=== PATIENT | male | born 1965 | race Caucasian/White ===

== ENCOUNTER → 2016-12-19 | Outpatient (CLI) | payer BC ==
[~2016-12-19] MED LIST: ASPI81TA28 PO; ATEN-173 PO; GLIP5TAB11 PO; HYZ/10015 PO; LEVO150T9 PO; METF-384 PO; MULT-221 PO; SIMV40TA4 PO
[2016-12-19 17:48] LABS: ALB/GLOB RATIO 1.2 (0.9-2); ALT/SGPT 39 U/L (12-78); AST/SGOT 19 U/L (15-37); BLOOD UREA NITROGEN 19 mg/dl (7-18); BUN/CREATININE RATIO 21.1 (10-20); CALCIUM 9.5 mg/dl (8.5-10.1); CARBON DIOXIDE 25 mmol/L (21-32); CHLORIDE 104 mmol/L (98-107); CHOLESTEROL 188 mg/dl (0-200); CHOLESTEROL/HDL RATIO 2.8; CREATININE 0.89 mg/dl (0.60-1.40); GLUCOSE 114 mg/dl (70-99); HDL CHOLESTEROL 67 mg/dl; LDL CHOLESTEROL CALCULATED 99 mg/dl; POTASSIUM 3.7 mmol/L (3.5-5.1); SODIUM 140 mmol/L (136-145); TRIGLYCERIDES 108 mg/dl (0-150); VERY LOW DENSITY LIPOPROT CALC 22 mg/dl
[2016-12-19 17:59] LABS: ALKALINE PHOSPHATASE 92 U/L (45-117)
[2016-12-19 19:57] LABS: RATIO 459.4 mcg/mg (0-30.0)
[2016-12-20 06:18] LABS: ESTIMATED AVERAGE GLUCOSE 166 mg/dl; HA1C FLAG Normal (Normal)
== END | disposition home or self-care (01) ==
LOC: C.LAB1850 16:02
PROVIDERS: ATTEND Nurse Practitioner Family
DX: E11.29 Type 2 diabetes mellitus with other diabetic kidney complication (principal); E78.5 Hyperlipidemia, unspecified

== ENCOUNTER → 2017-04-18 | Outpatient (CLI) | payer BC ==
[2017-04-19 06:56] LABS: ESTIMATED AVERAGE GLUCOSE 166 mg/dl; HA1C FLAG Normal (Normal)
== END | disposition home or self-care (01) ==
LOC: C.LAB1850 16:23
PROVIDERS: ATTEND Nurse Practitioner Family
DX: E11.29 Type 2 diabetes mellitus with other diabetic kidney complication (principal)

== ENCOUNTER → 2017-07-24 | Outpatient (CLI) | payer BC ==
[2017-07-24 17:18] LABS: PROSTATE SPECIFIC ANTIGEN 2.24 ng/ml (0.000-4.000); THYROID STIMULATING HORMONE 0.126 uIu/ml (0.300-4.500)
[2017-07-25 06:46] LABS: ESTIMATED AVERAGE GLUCOSE 128 mg/dl; HA1C FLAG Normal (Normal)
== END | disposition home or self-care (01) ==
LOC: C.LAB1850 15:40
PROVIDERS: ATTEND Nurse Practitioner Family
DX: Z12.5 Encounter for screening for malignant neoplasm of prostate (principal); E03.9 Hypothyroidism, unspecified; E11.9 Type 2 diabetes mellitus without complications

== ENCOUNTER → 2017-11-01 | Outpatient (CLI) | payer BC ==
[2017-11-01 12:36] LABS: BLOOD UREA NITROGEN 19 mg/dl (7-18); CALCIUM 9.2 mg/dl (8.5-10.1); CARBON DIOXIDE 27 mmol/L (21-32); CREATININE 0.91 mg/dl (0.60-1.40); GLUCOSE 140 mg/dl (70-99); SODIUM 139 mmol/L (136-145)
[2017-11-01 12:50] LABS: CHOLESTEROL 180 mg/dl (0-200); LDL CHOLESTEROL CALCULATED 105 mg/dl
[2017-11-01 12:59] LABS: HEMOGLOBIN A1C 6.1 % (4.5-5.6)
== END | disposition home or self-care (01) ==
LOC: C.LAB1850 10:28
PROVIDERS: ATTEND Nurse Practitioner Family
DX: E11.29 Type 2 diabetes mellitus with other diabetic kidney complication (principal)